=== PATIENT | female | born 1995 | race Caucasian/White ===

== ENCOUNTER 2017-07-30 20:33 | Emergency (ER) | payer BC ==
[~2017-07-30] VITALS: Ht 160 cm; Wt 61.9 kg
[2017-07-30 20:39] VITALS: TEMP 36.8; Ht 160 cm; Wt 61.9 kg
--- NOTE | 2017-07-30 21:14 | EMERGENCY ROOM VISIT NOTE ---
ED Visit Note First contact with patient: 20:50 CHIEF COMPLAINT: Itchy skin rash on buttocks since yesterday HISTORY OF PRESENT ILLNESS: Patient is an otherwise healthy 22-year-old white female who presents the emergency department for evaluation of an itchy rash on her buttocks that she's noticed yesterday. She notes a raised, slightly red, itchy bumps on her buttocks. She did not do anything for the rash. Today she became concerned that the rash was spreading to a spot on her left arm. The patient uses tanning beds, denies any new exposure to any potential allergens such as new medications, clothes, detergents, cosmetic products, or foods. She uses a cocoa butter lotion. She lives in a house with roommates who are asymptomatic. She is sleeping on a mattress that she brought from her home in [place]. She has not stayed in a hotel in the last 4-6 weeks. REVIEW OF SYSTEMS: Review of systems as per HPI. All other systems reviewed were negative. 10 systems reviewed. PMH: Electronic medical records are reviewed and summarized as above/below. See Problem List. SOCIAL HISTORY: Patient is a college student from [place] who lives locally in a house with roommates. She does not smoke, drinks alcohol socially. PHYSICAL EXAM: Vital Signs: Reviewed Nurse's notes. CONSTITUTIONAL: Patient is a well-appearing 22-year-old white female who is awake and alert and in no acute distress. INTEGUMENTARY: Examination of the patient's buttocks show a raised, maculopapular/pustular rash that is slightly erythematous. No vesicles or burrows are appreciated. No petechiae, hemorrhagic lesions, or bullae were seen. Rash does not involve any other areas of the body, specifically hands and arms were inspected thoroughly, without findings. EMERGENCY DEPARTMENT COURSE: The patient was seen and evaluated as above. She appears to have a slightly pustular, follicular rash on her buttocks that I suspect could be folliculitis. It does not appear consistent with an allergic reaction or contact dermatitis. Possibility of scabies was entertained although rash does not appear consistent with that at this time, it could be early in the presentation. Patient will be placed on a course of Keflex for a presumed folliculitis, however was given a prescription for Permethrin 5% cream and instructed on how to take it appropriately applied appropriately. She was encouraged to follow-up with [facility] that her symptoms are not improving. Medication reconciliation: I attest that I have personally reviewed the patient' s current medication list. Blood pressure screening : Patient was found to have normal blood pressure on screening and does not require follow-up. Current/Historical Medications Scheduled Cephalexin Monohydrate (Keflex), 500 MG PO QID Pediatric Multiple Vitamin W/ (Flintstones Gummies), 2 TABS PO DAILY Permethrin 5% (Elimite 5%), 0 EXT UD Allergies Coded Allergies: Amoxicillin (Verified Allergy, Unknown, Unknown, 07/30/17) Clavulanic Acid (Verified Allergy, Unknown, Unknown, 07/30/17) Vital Signs Date Time Temp Pulse Resp B/P (MAP) Pulse Ox O2 Delivery O2 Flow Rate FiO2 07/30/17 21:25 89 18 125/74 100 07/30/17 20:39 36.8 101 18 130/82 100 Room Air Medications Administered Medications (Trade) Dose Ordered Sig/Anatoliy Route Start Time Stop Time Status Last Admin Dose Admin Cephalexin Monohydrate (Keflex 500MG Home Pack) 1 homepack NOW ONCE PO 07/30/17 21:15 07/30/17 21:16 DC 07/30/17 21:25 1 HOMEPACK Departure Information Impression Primary Impression: Pruritic rash Prescriptions Cephalexin Monohydrate (Keflex) 500 Mg Cap 500 MG PO QID, #40 CAP Prov: Juhi Oliva PA 07/30/17 Permethrin 5% (Elimite 5%) 180 Appln/60 Gm Cr 0 EXT UD, #60 GM 1 Refill APPLY NECK TO FOOT - LEAVE ON 8-14 HR - WASH OFF Prov: Juhi Oliva PA 07/30/17 Referrals No Doctor, Assigned (PCP) Patient Instructions My [facility] Additional Instructions Cephalexin(Keflex) 500mg: Take one pill four times daily for 10 days for your skin infection. All antibiotics can cause diarrhea. If this occurs and you feel worse or it does not resolve in 1-2 days follow up with your doctor or return to the Emergency Department as this could be signs of serious underlying problems. Any medication can cause an allergic reaction, stop the pills immediately and return to the ER for rash, hives, breathing difficulties, or swelling. Diphenhydramine(Benadryl) 25mg: use 25 to 50 mg as needed every six hours for itching. This medication is sedating and will cause drowsiness. Avoid alcohol, operating machinery or dangerous equipment, working on ladders or roofs, DRIVING , or situations where being under the influence may be dangerous. Zantac 75: Take two pills twice a day along with Benadryl as needed for itching. Most people know this for its affect on the stomach, but it also acts similar to, but less potent than Benadryl for allergic reactions. Both the Benadryl and the Zantac are available [id number]. Ibuprofen(Motrin, Advil) may be used for fever or pain. Use 600mg every six hours as needed. Take with food. Avoid using more than 2400mg in a 24 hour period. Do not use 2400mg per day for more than three consecutive days without physician direction. Prolonged inappropriate use can lead to stomach upset or ulcers. (AND/OR) Acetaminophen(Tylenol) may be used for fever or pain. Use 1000mg every six hours as needed. Avoid using more than 3000mg in a 24 hour period. Clean area with mild soap and water. Avoid heavy lotions or tight, occlusive clothing. Rest and drink plenty of fluids. Continue current medications. Return to the emergency department for worsening of your rash, swelling of your face, lips, tongue, or throat, difficulty breathing, vomiting, or as needed. Follow-up with your primary care physician in 2-3 days for a recheck of your current condition.
[2017-07-30] MEDS ORDERED: CEPHALEXIN 500MG HOME PACK 1 EA BTL PO ONE (21:15)
[2017-07-30] MEDS ORDERED: ELMCR EXT (21:16)
[2017-07-30] MEDS ORDERED: CEPH500C PO (21:16)
[2017-07-30 21:25] VITALS: BP 125/74; PULSE 89; O2SAT 100
[2017-07-30] MEDS ORDERED: PEDICHW53 PO (21:25)
== END 2017-07-30 21:27 | disposition home or self-care (01) ==
LOC: C.EDB 20:36 → C.EDD 21:27
DX: L29.9 Pruritus, unspecified (principal)